=== PATIENT | male | born 1985 | race Caucasian/White ===

== ENCOUNTER 2021-04-03 18:18 | Emergency (ER) | payer BC ==
--- NOTE | 2021-04-03 19:35 | EDM.PDOC ---
ED HPI GENERAL MEDICAL PROBLEM - General Chief Complaint: Cardiovascular Problem Stated Complaint: SOB NUMBNESS ARMS LEGS LIPS Time Seen by Provider: 04/03/21 19:03 Source of Information: Reports: Patient, RN Notes Reviewed - History of Present Illness INITIAL COMMENTS - FREE TEXT/NARRATIVE: 35 yr old male had a brief episode of L chest discomfort followed by numbness of both hands, arms, distal tongue and even back of his legs. Better now at time of my exam. Had a cough a week ago, that is now gone. He does not smoke. Strong family hx of heart disease. Hx Htn. Left Arm Pain Score (Numeric/FACES): 2 - Related Data Allergies Allergy/AdvReac Type Severity Reaction Status Date / Time nitrous oxide Allergy Other Verified 04/03/21 18:33 Home Meds: Home Meds Escitalopram [Lexapro] 10 mg PO DAILY 04/03/21 [History] Losartan [Cozaar] 50 mg PO DAILY 04/03/21 [History] Past Medical History HEENT History: Reports: Impaired Vision Cardiovascular History: Reports: Hypertension Respiratory History: Reports: Pneumonia, Recurrent Gastrointestinal History: Reports: Gastritis, PUD Genitourinary History: Reports: None Musculoskeletal History: Reports: Back Pain, Chronic, Neck Pain, Chronic Neurological History: Reports: Headaches, Chronic Psychiatric History: Reports: Anxiety, Depression Endocrine/Metabolic History: Reports: None Hematologic History: Reports: None Immunologic History: Reports: None Oncologic (Cancer) History: Reports: None Dermatologic History: Reports: None - Infectious Disease History Infectious Disease History: Reports: Chicken Pox - Past Surgical History Head Surgeries/Procedures: Reports: None HEENT Surgical History: Reports: Oral Surgery, Tonsillectomy Musculoskeletal Surgical History: Reports: Other (See Below) Other Musculoskeletal Surgeries/Procedures:: back surgery 2011 Social & Family History - Family History Family Medical History: No Pertinent Family History Cardiac: Reports: CAD - Tobacco Use Tobacco Use Status *Q: Current Some Day Tobacco User Years of Tobacco use: 3 Packs/Tins Daily: 0.5 - Caffeine Use Caffeine Use: Reports: Energy Drinks, Soda - Recreational Drug Use Recreational Drug Use: Yes Drug Use in Last 12 Months: Yes Recreational Drug Type: Reports: Marijuana/Hashish Recreational Drug Use Frequency: Socially ED ROS GENERAL - Review of Systems Review Of Systems: See Below Constitutional: Denies: Fever, Chills, Diaphoresis HEENT: Denies: Throat Pain Respiratory: Denies: Shortness of Breath, Pleuritic Chest Pain Cardiovascular: Reports: Chest Pain (gone), Lightheadedness GI/Abdominal: Denies: Abdominal Pain Musculoskeletal: Reports: Arm Pain (mild, gone) Neurological: Reports: Numbness (bilat hands, arms, tip of tongue and bilat proximal legs) ED EXAM, GENERAL - Physical Exam Exam: See Below General Appearance: Alert, No Apparent Distress (at time of my exam, numbness resolving) Head: Atraumatic Neck: Supple Respiratory/Chest: No Respiratory Distress, Lungs Clear, Normal Breath Sounds. No: Rhonchi, Wheezing Cardiovascular: Regular Rate, Rhythm GI/Abdominal: Non-Tender Extremities: No: Non-Tender, Pedal Edema, Leg Pain, Increased Warmth, Redness Neurological: Alert, Oriented, No Motor/Sensory Deficits Skin Exam: Warm, Dry, Normal Color #1 Interpretation EKG Date: 04/03/21 Rhythm: NSR P-Wave: Present QRS: Normal ST-T: Normal QT: Normal Course - Vital Signs Last Recorded V/S: Last Vital Signs Temp 97.2 F 04/03/21 18:36 Pulse 72 04/03/21 18:36 Resp 28 H 04/03/21 18:36 BP 139/87 04/03/21 18:36 Pulse Ox 100 04/03/21 18:36 - Orders/Labs/Meds Orders: Active Orders 24 hr Category Date Time Status EKG 12 Lead [EKG Documentation Completion] [RC] STAT Care 04/03/21 19:12 Active Labs: Laboratory Tests 04/03/21 Range/Units 19:22 Troponin I < 0.017 (0.00-0.056) ng/mL - Re-Assessments/Exams Free Text/Narrative Re-Assessment/Exam: 04/03/21 20:39 trop nl. BP on arrival, readings after that have been higher in the upper 150/90. Discharge instr. as documented. Departure - Departure Time of Disposition: 20:26 Disposition: Home, Self-Care 01 Condition: Fair Clinical Impression: Hypertension, Atypical chest pain, Panic attack Instructions: Panic Attack, [id number], Nonspecific Chest Pain, Adult, [id number], Hypertension, Adult, [id number] Referrals: PCP,Not In Area [Primary Care Provider] - Forms: ED Department Discharge Additional Instructions: Get a BP unit and check your blood pressure twice daily, keep a record of that. Eat more of a cardiac healthy diet. Get back into a regular exercise program. See Cassandra at the clinic in about 7 to 10 days, call for appt. Bring a record of your BP readings with you. Return to ED as needed if symptoms worsening in any way. Sepsis Event Note (ED) - Evaluation Sepsis Screening Result: No Definite Risk - Focused Exam Vital Signs: Vital Signs Temp Pulse Resp BP Pulse Ox 04/03/21 18:36 97.2 F 72 28 H 139/87 100 - My Orders Last 24 Hours: My Active Orders 04/03/21 19:12 EKG 12 Lead [EKG Documentation Completion] [RC] STAT - Assessment/Plan Last 24 Hours: My Active Orders 04/03/21 19:12 EKG 12 Lead [EKG Documentation Completion] [RC] STAT
== END 2021-04-03 20:38 | disposition home or self-care (01) ==
LOC: JD.ED 18:18
DX: F41.0 Panic disorder [episodic paroxysmal anxiety] (principal); I10 Essential (primary) hypertension; Z72.0 Tobacco use; Z79.899 Other long term (current) drug therapy; Z91.048 Other nonmedicinal substance allergy status
CPT/HCPCS: 36415; 84484; 93005; 93010; 99283; 99284-25